=== PATIENT | male | born 1970 | race Caucasian/White ===

== ENCOUNTER 2018-10-08 20:37 | Emergency (ER) | payer OTHER ==
[~2018-10-08] VITALS: Ht 182.9 cm; Wt 118.2 kg
[2018-10-08 21:05] LABS: BASO # 0.1 10^3/uL (0.0-0.2); BASO % 0.7 % (0.0-1.0); EOS # 0.2 10^3/uL (0.0-0.50); EOS % 2.6 % (0.0-3.0); HEMATOCRIT 43.7 % (42.0-52.0); HEMOGLOBIN 15.2 g/dl (13.5-17.5); LYMPH # 3.4 10^3/uL (1.5-4.5); LYMPH % 45.2 % (24.0-44.0); MEAN CORPUSCULAR HEMOGLOBIN 31.5 pg (27.0-33.0); MEAN CORPUSCULAR HGB CONC 34.8 g/dl (32.0-36.5); MEAN CORPUSCULAR VOLUME 90.7 fl (80.0-96.0); MONO # 0.7 10^3/uL (0.0-0.8); MONO % 9.6 % (0.0-5.0); NEUTROPHILS # 3.2 10^3/uL (1.8-7.7); NEUTROPHILS % 41.6 % (36.0-66.0); PLATELET COUNT, AUTOMATED 215 10^3/uL (150-450); RED BLOOD COUNT 4.82 10^6/uL (4.30-6.10); WHITE BLOOD COUNT 7.6 10^3/uL (4.0-10.0)
[2018-10-08 21:34] LABS: BLOOD UREA NITROGEN 28 MG/DL (7-18); CALCIUM LEVEL 8.5 MG/DL (8.5-10.1); CARBON DIOXIDE LEVEL 29 MEQ/L (21-32); CHLORIDE LEVEL 106 MEQ/L (98-107); CPK CREATINE PHOSPHOKINASE 181 U/L (39-308); CREATININE FOR GFR 1.22 MG/DL (0.70-1.30); GLOMERULAR FILTRATION RATE > 60.0 (>60); GLUCOSE, FASTING 95 MG/DL (70-100); MB/CK RELATIVE INDEX 0.77 (< OR =4); POTASSIUM SERUM 3.8 MEQ/L (3.5-5.1); SODIUM LEVEL 142 MEQ/L (136-145); TROPONIN I < 0.02 NG/ML (< 0.10)
--- NOTE | 2018-10-08 21:44 | REP ---
Clinical: Chest pain . Comparison: None . Findings: The mediastinum and cardiac silhouette are stable and within normal limits for portable technique. The lung lo are clear without acute consolidation, effusion, or pneumothorax. Skeletal structures are intact. Impression: No acute cardiopulmonary process appreciated. Electronically Signed by Jerry Ng MD 10/08/2018 09:36 P
[2018-10-08 21:58] LABS: INR 0.91; PROTHROMBIN TIME 12.3 SECONDS (12.1-14.4)
[2018-10-08 21:59] LABS: PARTIAL THROMBOPLASTIN TIME 27.5 SECONDS (25.4-37.6)
[2018-10-08 22:01] LABS: D-DIMER QUANT 282.77 ng/ml (<500)
[2018-10-08] MEDS ORDERED: GI COCKTAIL 50ML BTL(HYOSCYAMINE/MAALOX/LIDOCAINE VISCOUS)(1:3:1) PO ONE (22:30)
[2018-10-08] MEDS ORDERED: ECOT81TA5 PO (23:28)
[2018-10-08] MEDS ORDERED: HYDR25TAB PO (23:28)
[2018-10-08 23:38] LABS: CPK CREATINE PHOSPHOKINASE 160 U/L (39-308); MB/CK RELATIVE INDEX 0.75 (< OR =4); TROPONIN I < 0.02 NG/ML (< 0.10)
[2018-10-09 00:20] VITALS: BP 147/85
--- NOTE | 2018-10-09 06:07 | ECGEPIP ---
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
--- NOTE | 2018-10-09 06:10 | ECGEPIP ---
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
== END 2018-10-09 00:29 | disposition home or self-care (01) ==
LOC: M ED 20:37
DX: I10 Essential (primary) hypertension (principal); R07.89 Other chest pain; R00.1 Bradycardia, unspecified; Z79.82 Long term (current) use of aspirin

== ENCOUNTER 2018-10-16 00:04 | Emergency (ER) | payer OTHER ==
[~2018-10-16] VITALS: Ht 182.9 cm; Wt 118.2 kg
[~2018-10-16 00:04] MED LIST: ECOT81TA5 PO; HYDR25TAB PO
[2018-10-16 00:50] LABS: BASO % 0.5 % (0.0-1.0); EOS # 0.1 10^3/uL (0.0-0.50); EOS % 1.8 % (0.0-3.0); HEMATOCRIT 44.2 % (42.0-52.0); HEMOGLOBIN 15.3 g/dl (13.5-17.5); LYMPH # 2.2 10^3/uL (1.5-4.5); LYMPH % 28.5 % (24.0-44.0); MEAN CORPUSCULAR HEMOGLOBIN 31.1 pg (27.0-33.0); MEAN CORPUSCULAR HGB CONC 34.6 g/dl (32.0-36.5); MEAN CORPUSCULAR VOLUME 89.8 fl (80.0-96.0); MONO # 0.8 10^3/uL (0.0-0.8); MONO % 9.6 % (0.0-5.0); NEUTROPHILS # 4.6 10^3/uL (1.8-7.7); NEUTROPHILS % 59.3 % (36.0-66.0); PLATELET COUNT, AUTOMATED 208 10^3/uL (150-450); RED BLOOD COUNT 4.92 10^6/uL (4.30-6.10); WHITE BLOOD COUNT 7.8 10^3/uL (4.0-10.0)
[2018-10-16 01:01] LABS: INR 0.95; PROTHROMBIN TIME 12.8 SECONDS (12.1-14.4)
[2018-10-16 01:20] LABS: ALBUMIN 3.5 GM/DL (3.2-5.2); ALT/SGPT 36 U/L (12-78); BLOOD UREA NITROGEN 28 MG/DL (7-18); CALCIUM LEVEL 8.8 MG/DL (8.5-10.1); CARBON DIOXIDE LEVEL 28 MEQ/L (21-32); CHLORIDE LEVEL 106 MEQ/L (98-107); CPK CREATINE PHOSPHOKINASE 112 U/L (39-308); CREATININE FOR GFR 1.18 MG/DL (0.70-1.30); GLOMERULAR FILTRATION RATE > 60.0 (>60); GLUCOSE, FASTING 102 MG/DL (70-100); LIPASE 138 U/L (73-393); MB/CK RELATIVE INDEX 0.98 (< OR =4); POTASSIUM SERUM 3.8 MEQ/L (3.5-5.1); SODIUM LEVEL 142 MEQ/L (136-145); TOTAL PROTEIN 6.6 GM/DL (6.4-8.2); TROPONIN I < 0.02 NG/ML (< 0.10)
--- NOTE | 2018-10-16 01:43 | REP ---
Clinical: Acute chest pain . Comparison: 10/08/2018 . Findings: The mediastinum and cardiac silhouette are stable and within normal limits for portable technique. The lung lo are clear without acute consolidation, effusion, or pneumothorax. Skeletal structures are intact. Impression: No acute cardiopulmonary process appreciated. Electronically Signed by Jerry Ng MD 10/16/2018 01:34 A
[2018-10-16] MEDS ORDERED: PANTOPRAZOLE 40MG INJ (PROTONIX) (C9113) IV ONE (04:00)
[2018-10-16] MEDS ORDERED: GI COCKTAIL 50ML BTL(HYOSCYAMINE/MAALOX/LIDOCAINE VISCOUS)(1:3:1) PO ONE (04:00)
[2018-10-16] MEDS ORDERED: ISOVUE-370 76% 100ML VIAL (Q9967) As Ordered ONE (04:06)
--- NOTE | 2018-10-16 04:58 | REPVR ---
EXAM: CT Angiography Chest With Contrast EXAM DATE/TIME: 10/16/2018 4:13 AM CLINICAL HISTORY: 48 years old, male; Chest pain; Type not specified TECHNIQUE: Imaging protocol: Axial computed tomographic angiography images of the chest with intravenous contrast using CT angiography protocol. Coronal and sagittal reformatted images were created and reviewed. 3D rendering: MIP reconstructed images were created and reviewed. Radiation optimization: All CT scans at this facility use at least one of these dose optimization techniques: automated exposure control; mA and/or kV adjustment per patient size (includes targeted exams where dose is matched to clinical indication); or iterative reconstruction. Contrast material: ISOVUE 370; Contrast volume: 100 ml; Contrast route: IV; COMPARISON: CR PORTABLE CHEST X-RAY 10/16/2018 12:41 AM FINDINGS: Limitations: There is a small amount of motion artifact. Pulmonary arteries: The pulmonary arteries are not enlarged. No filling defects are seen to indicate an acute pulmonary embolism. Assessment of the smaller branches is limited in some locations due to motion artifact . Aorta: There is no thoracic aortic aneurysm or evidence of dissection. Lungs: There is mild groundglass opacity in the dependent portions of the bilateral lower lobes, probably due to incomplete expansion and mild subsegmental atelectasis. Areas of lucency within this may be from air trapping or subpleural blebs. There is no significant consolidation. Motion artifact limits the assessment of the fine detail of the lungs in some locations. Pleural space: There is no pleural effusion. Heart: The heart is mildly enlarged. Upper abdomen: No acute abnormality is identified in the visualized upper abdomen. Lymph nodes: No lymphadenopathy is seen. Bones/joints: Degenerative endplate changes are seen at multiple levels in the visualized spine. Soft tissues: Unremarkable. IMPRESSION: 1. No evidence of thoracic aortic aneurysm or dissection and no evidence of acute pulmonary embolism. 2. Dependent mild groundglass opacity in both lungs, probably due to incomplete expansion and mild subsegmental atelectasis. 3. Cardiomegaly. Electronically signed by: Fiordaliza Posada On 10/16/2018 04:58:03 AM
[2018-10-16 06:42] LABS: CPK CREATINE PHOSPHOKINASE 108 U/L (39-308); TROPONIN I < 0.02 NG/ML (< 0.10)
[2018-10-16] MEDS ORDERED: PROT1TAB2 PO (07:01)
[2018-10-16 07:15] VITALS: BP 136/87
--- NOTE | 2018-10-17 08:30 | ECGEPIP ---
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
--- NOTE | 2018-10-17 08:37 | ECGEPIP ---
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
== END 2018-10-16 07:16 | disposition home or self-care (01) ==
LOC: M ED 00:04
DX: R07.9 Chest pain, unspecified (principal); I10 Essential (primary) hypertension; Z82.49 Family history of ischemic heart disease and other diseases of the circulatory system; Z79.899 Other long term (current) drug therapy; Z79.82 Long term (current) use of aspirin
CPT/HCPCS: 36415; 71045; 71275; 80053; 82550; 82553; 83690; 84484; 85025; 85610; 93005; 93041; 94760; 96374; 99285; C9113; Q9967

== ENCOUNTER → 2019-12-15 | Outpatient (REF) | payer OTHER ==
[~2019-12-15] MED LIST changes: +PROT1TAB2 PO
== END ==
LOC: M LAB REF 11:09
PROVIDERS: ATTEND Dermatology
DX: D49.2 Neoplasm of unspecified behavior of bone, soft tissue, and skin (principal)

== ENCOUNTER → 2020-02-08 | Outpatient (REF) | payer OTHER | LOC: M LAB REF 18:39 | PROVIDERS: ATTEND Dermatology | DX: L90.5 Scar conditions and fibrosis of skin (principal); C44.619 Basal cell carcinoma of skin of left upper limb, including shoulder ==

== ENCOUNTER → 2022-08-12 | Outpatient (REF) | payer OTHER ==
[~2022-08-12] MED LIST changes: +HYDR-3490 PO; -HYDR25TAB PO
== END ==
LOC: M SFHCDERM 14:25
PROVIDERS: ATTEND Physician Assistant
DX: C44.229 Squamous cell carcinoma of skin of left ear and external auricular canal (principal)

== ENCOUNTER 2023-08-13 07:38 | Day surgery (SDC) | payer OTHER ==
[~2023-08-13] VITALS: Ht 182.9 cm; Wt 130.4 kg
[~2023-08-13 07:38] MED LIST changes: +AMLO1TAB24 PO; +SERT50TA29 PO; +THERTAB52 PO; +fentaNYL 100 MCG/2 ML INJECTION As Ordered ONE; +propofoL 200 MG/20 ML VIAL As Ordered ONE
[2023-08-13] MEDS: NS 1,000 ML IV ONE (08:01)
[2023-08-13 08:56] VITALS: TEMP 97.3
[2023-08-13 09:15] VITALS: BP 122/68; O2SAT 99
== END 2023-08-13 09:36 | disposition home or self-care (01) ==
LOC: M OPP 07:38
PROVIDERS: ATTEND Internal Medicine Gastroenterology
DX: Z12.11 Encounter for screening for malignant neoplasm of colon (principal); K64.0 First degree hemorrhoids; K57.30 Diverticulosis of large intestine without perforation or abscess without bleeding; R12 Heartburn; K22.89 Other specified disease of esophagus; F17.220 Nicotine dependence, chewing tobacco, uncomplicated; I10 Essential (primary) hypertension; Z79.899 Other long term (current) drug therapy
CPT/HCPCS: 43239; 45378; 88305; J3010